=== PATIENT | female | born 1985 | race Caucasian/White ===

== ENCOUNTER 2018-09-17 21:48 | Emergency (ER) | payer BC ==
[2018-09-17] MEDS ORDERED: HYDROMORPHONE HCL INJ/PF 2 MG/ML AMPULE IV ONE (22:54)
[2018-09-17] MEDS ORDERED: NORMAL SALINE 1000 ML 1,000 ML IV ONE (22:55)
[2018-09-17] MEDS ORDERED: ONDANSETRON HCL INJ/PF 4 MG/2 ML SDV IV ONE (22:55)
--- NOTE | 2018-09-17 23:13 | ER Document Report ---
ED General <JENNIFER PARNELL - Last Filed: 09/18/18 06:46> - General TRAVEL OUTSIDE OF THE [place] IN LAST 30 DAYS: No <RA ROSS - Last Filed: 09/18/18 22:23> - General Chief Complaint: Abdominal Pain Stated Complaint: ABDOMINAL PAIN Time Seen by Provider: 09/17/18 22:45 Primary Care Provider: CHECO ROBERTO MD [Primary Care Provider] - Follow up as needed Notes: Patient is a 33-year-old female with a history of Crohn's disease who presents with complaint of severe abdominal pain which she says is mostly over the central area of her abdomen. She had recurrent vomiting. Last bowel movement was 6 AM this morning and with a "strained bowel movement". No further bowel movement since then. No blood in her stool. No blood in her emesis. No fevers. She says that she has a history of a stricture in her ileum 2 months ago and this feels similar. She is followed [facility] GI physician with [facility]. Has had previous surgery. Last surgery was 10 years ago. That was done at [facility]. He said at that time they took out part of her small bowel, her appendix, small amount of colon, and a small piece of her bladder because the bowel was adhered to the bladder. She has not had any further surgery since then and now is followed strictly in [place] for her Crohn's disease. When she had the stricture diagnosis 2 months ago she did see a gastro surgeon named Dr. Purvis in [place] who recommended no surgery at that time and to do prednisone and the Humira injections. (RA ROSS) - Related Data Allergies/Adverse Reactions: No Known Allergies Allergy (Verified 09/18/18 07:22) Past Medical History - Social History Smoking Status: Never Smoker Frequency of alcohol use: None Drug Abuse: None Family History: Reviewed & Not Pertinent GI Medical History: Reports: Hx Crohn's Disease Past Surgical History: Reports: Hx Abdominal Surgery - Bowel Recection 2008, Hx Orthopedic Surgery - L ACL repair 2005 - Immunizations Hx Diphtheria, Pertussis, Tetanus Vaccination: No - unknown <RA ROSS - Last Filed: 09/18/18 22:23> Review of Systems <RA ROSS - Last Filed: 09/18/18 22:23> - Review of Systems Notes: My Normal Review Basic REVIEW OF SYSTEMS: CONSTITUTIONAL : Denies fever, chills, or sweats. Denies recent illness. CARDIOVASCULAR: Denies chest pain. RESPIRATORY: Denies cough, cold, or chest congestion. Denies shortness of breath, difficulty breathing, or wheezing. GASTROINTESTINAL: No pain. Vomiting. GENITOURINARY: Denies difficulty urinating, painful urination, burning, frequency, or blood in urine. FEMALE GENITOURINARY: Denies vaginal bleeding, abnormal or irregular periods. MUSCULOSKELETAL: Denies neck or back pain or joint pain or swelling. SKIN: Denies rash or skin lesions. NEUROLOGICAL: Denies altered mental status or loss of consciousness. . ALL OTHER SYSTEMS REVIEWED AND NEGATIVE. (RA ROSS) Physical Exam <RA ROSS - Last Filed: 09/18/18 22:23> - Vital signs Vitals: Temp Pulse Resp BP 97.8 F 84 22 H 114/83 09/17/18 22:02 09/17/18 22:02 09/17/18 22:02 09/17/18 22:02 - Notes Notes: General Appearance: Well nourished, alert, cooperative, no acute distress, she is crying and appears to be in severe pain. Vitals: reviewed, See vital signs table. Eyes: PERRL, EOMI, Conjuctiva clear Mouth: No decreasd moisture Lungs: No wheezing, No rales, No rhonci, No accessory muscle use, good air exchange bilaterally. Heart: Normal rate, Regular rythm, No murmur, no rub Abdomen: Normal BS, soft, No rigidity, abdomen is soft. She is tender mostly over upper abdomen. She does have some guarding. She does have multiple scars on her abdomen from previous surgery. Last surgery was 10 years ago per patient's history. Extremities: strength 5/5 in all extremities, good pulses in all extremities, no swelling or tenderness in the extremities, no edema. Skin: warm, dry, appropriate color, no rash Neuro: speech clear, oriented x 3, normal affect, responds appropriately to questions. (RA ROSS) Course - Laboratory Result Diagrams: 09/17/18 23:15 09/18/18 01:16 <JENNIFER PARNELL - Last Filed: 09/18/18 06:46> - Laboratory Result Diagrams: 09/17/18 23:15 09/18/18 01:16 <RA ROSS - Last Filed: 09/18/18 22:23> - Re-evaluation Re-evalutation: 09/18/18 06:46 Patient accepted for transfer to [facility] by Dr. Richard Mitchell (JENNIFER PARNELL) 09/17/18 23:33 On reevaluation patient is feeling much improved after receiving the pain medicine. Her nausea is also under control with the nausea medicine. I think is appropriate you for the CT scan abdomen pelvis due to her severe pain she was having with intractable vomiting and a recent history of ileal stricture. Patient is agreeable to this. I have ordered oral and IV contrasted CT scan. 09/18/18 03:40 On reevaluation patient is doing well with the IM Dilaudid. Her pain is under control at this time. She has Margareth bit more contrast after drinking and we will take her for CT scan. (RA ROSS) - Vital Signs Vital signs: Temp Pulse Resp BP Pulse Ox 97.9 F 84 14 91/58 L 98 09/18/18 08:29 09/17/18 22:02 09/18/18 09:01 09/18/18 09:01 09/18/18 09:01 - Laboratory Laboratory results interpreted by me: 09/17/18 09/18/18 23:15 01:16 WBC 14.7 H RDW 14.2 H Seg Neutrophils % 86.0 H Lymphocytes % 8.2 L Absolute Neutrophils 12.6 H Chloride 108 H BUN 6 L Discharge <JENNIFER PARNELL - Last Filed: 09/18/18 06:46> <RA ROSS - Last Filed: 09/18/18 22:23> - Discharge Clinical Impression: Abdominal pain Qualifiers: Abdominal location: unspecified location Qualified Code(s): R10.9 - Unspecified abdominal pain Condition: Stable Disposition: [facility] Referrals: CHECO ROBERTO MD [Primary Care Provider] - Follow up as needed
[2018-09-17 23:35] LABS: ABSOLUTE EOSINOPHILS # (AUTO) 0.1 10^3/uL (0.0-0.6); ABSOLUTE LYMPHOCYTES (AUTO) 1.2 10^3/uL (0.5-4.7); ABSOLUTE MONOCYTES (AUTO) 0.7 10^3/uL (0.1-1.4); ABSOLUTE NEUT (AUTO) 12.6 10^3/uL (1.7-8.2); BASOPHILS % (AUTO) 0.3 % (0-2); EOSINOPHILS % (AUTO) 0.6 % (0-6); HEMATOCRIT 45.1 % (36.0-47.0); LYMPHOCYTES % (AUTO) 8.2 % (13-45); MEAN CORPUSCULAR HEMOGLOBIN 29.8 pg (27.0-33.4); MEAN CORPUSCULAR HGB CONC 33.4 g/dL (32.0-36.0); MEAN CORPUSCULAR VOLUME 90 fl (80-97); MONOCYTES % (AUTO) 4.9 % (3-13); PLATELET COUNT 307 10^3/uL (150-450); RED BLOOD COUNT 5.04 10^6/uL (3.72-5.28); RED CELL DISTRIBUTION WIDTH 14.2 % (11.5-14.0); TOTAL CELLS COUNTED % (AUTO) 100 %; WHITE BLOOD COUNT 14.7 10^3/uL (4.0-10.5)
[2018-09-18] MEDS ORDERED: HYDROMORPHONE HCL INJ/PF 2 MG/ML AMPULE IV ONE ×2 (00:17→01:19)
[2018-09-18] MEDS ORDERED: PROMETHAZINE HCL INJ 25 MG/1 ML VIAL IM ONE ×2 (00:50→06:11)
--- NOTE | 2018-09-18 01:15 | RADIOLOGY REPORT (SQ) ---
EXAM DESCRIPTION: XR ABDOMEN SUPINE AND ERECT WITH CHEST (ABD ACUTE SERIES) COMPLETED DATE/TME: 09/17/2018 22:54 CLINICAL HISTORY: 33 years, Female, abdominal pain COMPARISON: None. NUMBER OF VIEWS: Four TECHNIQUE: AP view of the chest with supine and upright images of the abdomen LIMITATIONS: None. FINDINGS: The lungs are clear. The heart is normal in size. There is no pneumothorax or pleural effusion. There is no intraperitoneal free air. Loops of small bowel measure up to 3.1 cm in diameter. There are no abnormal calcifications. The bones are unremarkable. IMPRESSION: No acute cardiopulmonary abnormality. Mildly dilated loops of small bowel, which may be due to an enteritis or obstruction. copyright 2010 [employer]- All Rights Reserved
[2018-09-18] MEDS ORDERED: HYDROMORPHONE HCL INJ/PF 2 MG/ML AMPULE IM ONE ×4 (01:39→06:37)
[2018-09-18 01:44] LABS: ALANINE AMINOTRANSFERASE 25 U/L (9-52); ALBUMIN 3.8 g/dL (3.5-5.0); ALKALINE PHOSPHATASE 80 U/L (38-126); ANION GAP 10 (5-19); ASPARTATE AMINO TRANSFERASE 21 U/L (14-36); BILIRUBIN,DIRECT 0.2 mg/dL (0.0-0.4); BILIRUBIN,TOTAL 1.3 mg/dL (0.2-1.3); BLOOD UREA NITROGEN 6 mg/dL (7-20); CALCIUM 8.8 mg/dL (8.4-10.2); CARBON DIOXIDE 25 mmol/L (22-30); CHLORIDE 108 mmol/L (98-107); GLUCOSE 109 mg/dL (75-110); LIPASE 23.6 U/L (23-300); POTASSIUM 4.2 mmol/L (3.6-5.0); SODIUM 142.6 mmol/L (137-145); TOTAL PROTEIN 6.7 g/dL (6.3-8.2)
--- NOTE | 2018-09-18 05:30 | RADIOLOGY REPORT (SQ) ---
EXAM DESCRIPTION: CT ABDOMEN PELVIS WITH IV CONTRAST COMPLETED DATE/TME: 09/17/2018 00:00 CLINICAL HISTORY: 33 years, Female, abdominal pain, vomiting, crohns COMPARISON: 09/06/2015 TECHNIQUE: Axial CT images of the abdomen and pelvis were obtained after administration of IV and oral contrast. Sagittal and coronal reformats were performed. DLP 860 Images stored on PACS. All CT scanners at this facility use dose modulation, iterative reconstruction, and/or weight based dosing when appropriate to reduce radiation dose to as low as reasonably achievable (ALARA). [facility]: Dose Right [facility]: CareDose [facility]: Dose Right [facility]: Teradose 4D [facility]: [employer] LIMITATIONS: None. FINDINGS: Lung bases are clear. There is a mild amount of perihepatic fluid. The liver appears unremarkable. The gallbladder is distended with no calcified stone or pericholecystic inflammatory changes. The pancreas, spleen, and adrenal glands are unremarkable. There is a nonobstructing stone along the lower pole the right kidney. There is no evidence of left-sided urolithiasis or hydronephrosis. There is no intraperitoneal free air. There is a mild amount of free fluid. There are scattered subcentimeter lymph nodes throughout the mesentery. The abdominal aorta is normal in caliber. The stomach appears unremarkable. There is circumferential thickening with mild stranding around the ileum along the right lower quadrant. The small bowel proximal to this measures up to 3 cm in diameter. Sutures are noted throughout the cecum. The colon appears incompletely distended. The uterus, adnexa, and urinary bladder appear unremarkable. There are no lytic or blastic bone lesions. IMPRESSION: Circumferential thickening with mild stranding along the ileum along the right lower quadrant, likely related to the patient's known history of Crohn's disease. Mild dilatation of the small bowel proximally, likely due to a low-grade obstruction or ileus. TECHNICAL DOCUMENTATION: Quality ID # [id number]: Final reports with documentation of one or more dose reduction techniques (e.g., Automated exposure control, adjustment of the mA and/or kV according to patient size, use of iterative reconstruction technique) copyright 2010 [employer]- All Rights Reserved
[2018-09-18 09:04] VITALS: BP 91/58
== END 2018-09-18 09:05 | disposition short-term general hospital (02) ==
LOC: ER 21:48
DX: R10.9 Unspecified abdominal pain (principal); R11.2 Nausea with vomiting, unspecified
CPT/HCPCS: 99285; 96372; 96374; 96375; 36415; 83690; 84703; 85025; 80053; 74022; 74177; J1170 ×2; J2550; J2405; J7030